=== PATIENT | male | born 1955 | race Caucasian/White ===

== ENCOUNTER 2024-03-04 16:16 | Day surgery (SDC) | payer MEDICARE, OTHER ==
[~2024-03-04] VITALS: Ht 185.4 cm; Wt 91.1 kg
[2024-03-04] VITALS (10 sets, daily range): BP systolic 109–124; BP diastolic 70–79; PULSE 58–71; TEMP 97.2–98
[~2024-03-04 16:16] MED LIST: ASPIRIN 81M81 MG/TA2 PO; CEPHALEXIN500 M1 PO; CRESTOR20 MG PO; EPA FISH OIL1 SGL PO; MULTI-VITAMIN W1 TA1 PO; NORCO 325 MG-51 TAB PO; SLO-NIACIN750 MG PO; TOPROL XL 25MG25 MG PO; ULTRAM 50MG TAB50 MG PO
--- NOTE | 2024-03-04 16:55 | NUR ---
Patient arrived with his to the surgical unit. Room 325. Alert and oriented x 4. States some pain 2-10 on his right shoulder.Assessment intake completed.
[2024-03-04] MEDS ORDERED: Lidocaine PF 2% (20 MG/ML) 5 ML VIAL ONE ×2 (17:55→17:56)
[2024-03-04] MEDS ORDERED: Ondansetron 4 MG/2 ML VIAL ONE (17:55)
[2024-03-04] MEDS ORDERED: fentaNYL 50 MCG/ML 2 ML VIAL ONE (17:55)
[2024-03-04] MEDS ORDERED: Midazolam 2 MG/2 ML VIAL ONE (17:55)
[2024-03-04] MEDS ORDERED: Rocuronium 50 MG/5 ML Multi-Dose VIAL ONE (17:56)
[2024-03-04] MEDS ORDERED: Succinylcholine PF 200 MG/10 ML SYRINGE IV ONE (17:56)
[2024-03-04] MEDS ORDERED: LR 1,000 ML IV SCH (18:00)
[2024-03-04] MEDS ORDERED: oxyCODONE/Acetaminophen 5-325 MG TAB PO PRN (18:30)
[2024-03-04] MEDS ORDERED: Ondansetron 4 MG/2 ML VIAL IV PRN ×2 (18:30→20:30)
[2024-03-04] MEDS ORDERED: HYDROmorphone 2 MG/1 ML VIAL ONE (19:01)
[2024-03-04] MEDS ORDERED: Glycopyrrolate 0.2 MG/ML 1 ML VIAL ONE (19:08)
[2024-03-04] MEDS ORDERED: ULTRAM 50MG TAB50 MG PO (20:12)
[2024-03-04] MEDS ORDERED: HYDROmorphone 1 MG/1 ML SYRINGE [PACU/SDC ONLY] IV PRN (20:30)
[2024-03-04] MEDS ORDERED: fentaNYL 50 MCG/ML 1 ML SYRINGE/VIAL [PACU/SDC ONLY] IV PRN (20:30)
[2024-03-04] MEDS ORDERED: hydrALAZINE 20 MG/ML 1 ML VIAL IV PRN (20:30)
--- NOTE | 2024-03-05 00:20 | NUR ---
Patient arrived to the floor at 2110, A/Ox4, see shift assessment, denies pain or discomfort. Offered jello, tolerated them fine and requested for a regular diet. Raysal given and tolerated it, no nausea or vomiting, dressing to right shoulder clean, dry and intact,arm sling on, VSS. At 2300 patient did go the bathroom and voided without any issues. At 2330 patient voiced that he is ready to go home. Discharge instructions given, questions answered, left the floor at [id number], escorted by this tech.
== END 2024-03-05 00:08 | disposition home or self-care (01) ==
LOC: SDCO 16:16 → SURG 16:46 → SDCO 16:46 → SURG 18:30 → EDSTATUS 18:30 → SDCO 18:30 → SURG 03-05 00:08 → SDCO 03-05 00:08
DX: T84.89XA Other specified complication of internal orthopedic prosthetic devices, implants and grafts, initial encounter (principal); M25.611 Stiffness of right shoulder, not elsewhere classified; Z96.611 Presence of right artificial shoulder joint; Z79.82 Long term (current) use of aspirin
CPT/HCPCS: A4619; C1776; J1170; J1580; J2250; J2405; J2704; J2795; J3010